=== PATIENT | female | born 1925 | race Caucasian/White ===

== ENCOUNTER → 2017-03-05 08:10 | Day surgery (SDC) | payer MEDICARE, OTHER ==
[~2017-03-05] VITALS: Ht 160 cm; Wt 47.7 kg
[~2017-03-05 08:10] MED LIST: ACETAMINOPHEN325 MG PO; ATIVAN0.5 MG PO; BAYER CHEWABLE81 MG PO; BREO ELLIPTA 11 EACH INH; CELEXA40 MG PO; CINNAMON500 MG PO; COMBIVENT RESPIM4 GM INH; COREG12.5 MG PO; FERROUS SULFAT325 MG PO; FLORANEX / LACT1 TAB PO; FLUTICASONE PRO16 GM NASAL; FUROSEMIDE20 MG PO; IPRAT-ALBUT 0.5-3 ML UPD; LEVAQUIN500 MG PO; LOMOTIL TABLET1 TAB PO; LYSINE1000 MG PO; MEGACE 20 MG TA20 MG PO; MUCINEX DM ER1 EAC1 PO; MULTIPLE VITAMI1 TA1 PO; NORVASC10 MG PO; NYSTATIN1 PWD TOPICAL; NYSTATIN15 GM TOPICAL; OMEPRAZOLE20 M1 PO; PRINIVIL20 MG PO; RESTASIS EYE DR30 EA EACH EYE; STIOLTO RESPIMAT; TESSALON PERLE100 MG PO; VANCOMYCIN250 MG/51 PO; ZOFRAN ODT4 MG/UDTAB PO; ZOLOFT100 MG PO
[2017-03-05 09:07] VITALS: BP 191/93; Ht 160 cm; Wt 47.7 kg
[2017-03-05 09:55] LABS: BASOPHILS 0.3 % (0-2); EOSINOPHILS 6.5 % (0-7); HEMATOCRIT 38.4 % (36.0-48.0); HEMOGLOBIN 12.5 g/dL (12-16); IMMATURE GRANULOCYTES 0.7 % (0-5); LYMPHOCYTES 32.3 % (15-50); MCH 29.5 pg (26.0-34.0); MCHC 32.6 g/dL (31.0-37.0); MCV 90.6 fL (80.0-100.0); NEUTROPHILS 52.2 % (40-80); RBC 4.24 10x6/uL (4.00-5.40); RDW 15.1 % (11.5-14.5)
[2017-03-05 09:57] LABS: PLATELET COUNT 138 10x3/uL (130-400)
--- NOTE | 2017-03-05 13:52 | NUR ---
1315 PT ESCORTED OUT BY VOLUNTEER AND ACCOMPANIED BY FAMILY.
== END | disposition home or self-care (01) ==
LOC: D.OPS 08:10
PROVIDERS: Anesthesiology
DX: R63.4 Abnormal weight loss (principal); A04.7 Enterocolitis due to Clostridium difficile; Z01.812 Encounter for preprocedural laboratory examination; I10 Essential (primary) hypertension; K21.9 Gastro-esophageal reflux disease without esophagitis; J44.9 Chronic obstructive pulmonary disease, unspecified